=== PATIENT | female | born 1950 | race Caucasian/White ===

== ENCOUNTER 2017-04-22 21:45 | Emergency (ER) | payer BC, OTHER ==
[~2017-04-22] VITALS: Ht 167.6 cm; Wt 72.7 kg
[2017-04-22 21:47] VITALS: Ht 167.6 cm; Wt 72.7 kg
--- NOTE | 2017-04-22 22:13 | ERA ---
ER Documentation Chief Complaint Date/Time DATE: 04/22/17 TIME: 22:12 Chief Complaint RUQ AP IN AM. +NAUSEA HX GALLSTONES HPI The patient is a 66-year-old female, presenting to the ER because of right upper quadrant abdominal pain that began about 10 AM today, had similar symptoms previously due to gallbladder attack, the pain is worse with food, and last meal was 12 PM. She denies fever, chills, neck pain, chest pain, complaint of nausea but no vomiting, denies diarrhea, complains of constipation , denied dysuria. She does not smoke nor drink. She is awaiting for cholecystectomy Past medical history: Cholelithiasis, vertigo, hypertension, dyslipidemia Past surgical history: Hysterectomy, left inguinal herniorrhaphy ROS All systems reviewed and are negative except as per history of present illness. Medications Home Meds Active Scripts Tramadol Hcl* (Ultram*) 50 Mg Tablet, 50 MG PO Q6H Y for PAIN, #14 TAB Prov:JAYA RUBIO MD 04/22/17 Sulfamethoxazole/Trimethoprim* (Bactrim Ds* Tablet) 1 Each Tablet, 1 TAB PO BID , #14 TAB Prov:JAYA RUBIO MD 04/22/17 Reported Medications Calcium Citrate/Vitamin D (Citracal-Vitamin D 200 MG-250) 1 Each Tablet, 1 EACH PO BID, TAB 04/22/17 Multivits-Min/Iron/FA/Lutein (Centrum Silver Women Tablet) 1 Each Tablet, 1 EACH PO, TAB 04/22/17 Ibuprofen* (Ibuprofen*) 200 Mg Capsule, 400 MG PO Q6, CAP 04/22/17 Hydrochlorothiazide* (Hydrochlorothiazide*) 25 Mg Tab, 25 MG PO DAILY, #30 TAB 04/22/17 Lisinopril* (Lisinopril*) 40 Mg Tablet, 40 MG PO DAILY, #30 TAB 04/22/17 Simvastatin* (Zocor*) 20 Mg Tablet, 20 MG PO QHS, #30 TAB 04/22/17 Allergies Allergies: Coded Allergies: morphine (Verified Allergy, Unknown, RASH, 04/22/17) Physical Exam Vitals Vital Signs Date Time Temp Pulse Resp B/P Pulse Ox O2 Delivery O2 Flow Rate FiO2 04/22/17 23:18 62 11 142/73 97 Room Air 04/22/17 21:47 98.9 75 18 194/85 98 Physical Exam Const: No acute distress. Head: Atraumatic. Eyes: Normal Conjunctiva. ENT: Normal External Ears, Nose and Mouth. Neck: Full range of motion. No meningismus. Resp: Clear to auscultation bilaterally. Cardio: Regular rate and rhythm. Abd: Soft, non distended, normal bowel sounds, mild to moderate right upper quadrant tenderness, no right lower quadrant, rigidity, rebound, CVA tenderness Skin: No petechiae or rashes. Back: No midline or flank tenderness. Ext: No cyanosis, or edema. Neur: Awake and alert. No focal deficit Psych: Normal Mood and Affect. Result Diagram: 04/22/17221904/22/172219 Results 24 hrs Laboratory Tests Test 04/22/17 22:20 04/22/17 22:28 White Blood Count 7.710^3/ul Red Blood Count 4.5210^6/ul Hemoglobin 13.4g/dl Hematocrit 40.5% Mean Corpuscular Volume 89.6fl Mean Corpuscular Hemoglobin 29.6pg Mean Corpuscular Hemoglobin Concent 33.1g/dl Red Cell Distribution Width 12.1% Platelet Count 95080^3/UL Mean Platelet Volume 10.1fl Neutrophils % 57.9% Lymphocytes % 27.3% Monocytes % 11.0% Eosinophils % 2.9% Basophils % 0.5% Nucleated Red Blood Cells % 0.0/100WBC Neutrophils # 4.410^3/ul Lymphocytes # 2.110^3/ul Monocytes # 0.810^3/ul Eosinophils # 0.210^3/ul Basophils # 0.010^3/ul Nucleated Red Blood Cells # 0.010^3/ul Prothrombin Time 12.4Sec Prothrombin Time Ratio 1.0 INR International Normalized Ratio 0.92 Activated Partial Thromboplast Time 29.5Sec Sodium Level 139mmol/L Potassium Level 4.3mmol/L Chloride Level 104mmol/L Carbon Dioxide Level 27mmol/L Anion Gap 12 Blood Urea Nitrogen 15mg/dl Creatinine 0.67mg/dl Glucose Level 93mg/dl Calcium Level 9.8mg/dl Total Bilirubin 0.3mg/dl Direct Bilirubin 0.00mg/dl Indirect Bilirubin 0.3mg/dl Aspartate Amino Transf (AST/SGOT) 21IU/L Alanine Aminotransferase (ALT/SGPT) 33IU/L Alkaline Phosphatase 74IU/L Total Protein 8.1g/dl Albumin 4.8g/dl Globulin 3.30g/dl Albumin/Globulin Ratio 1.45 Lipase 211U/L Bedside Urine pH (LAB) 7.0 Bedside Urine Protein (LAB) Negative Bedside Urine Glucose (UA) Negative Bedside Urine Ketones (LAB) Negative Bedside Urine Blood Trace-intact Bedside Urine Nitrite (LAB) Negative Bedside Urine Leukocyte Esterase (L 1+ Current Medications Medications (Trade) Dose Ordered Sig/Alivia Route PRN Reason Start Time Stop Time Status Last Admin Dose Admin Morphine Sulfate (morphine) 4 mg ONCE STAT IV 04/22/17 22:19 04/22/17 22:21 DC Ondansetron HCl (Zofran Inj) 4 mg ONCE STAT IV 04/22/17 22:19 04/22/17 22:21 DC 04/22/17 22:43 Ketorolac Tromethamine (Toradol) 30 mg ONCE STAT IV 04/22/17 22:35 04/22/17 22:40 DC 04/22/17 22:43 Procedures/MDM MEDICAL MAKING DECISION: The patient is a 66-year-old female, presenting acute biliary colic, acute cystitis. She was treated with Toradol 30 mg IV for pain and Zofran 4 mg IV for nausea with good response, her blood pressure improved. On multiple reevaluation, she felt well, repeat abdominal exams were unremarkable The differential diagnoses considered include but are not limited to cholelithiasis, cholecystitis, cystitis, pancreatitis, hepatitis, gastritis, peptic ulcer disease, gastric ulcer, appendicitis, diverticulitis, cholangitis, choledocholithiasis, partial small bowel obstruction. Departure Diagnosis: Primary Impression: Biliary colic Additional Impression: UTI (urinary tract infection) Condition: Good Comments She was discharged with Bactrim DS and Ultram I discussed the findings with the patient. I advised the patient to follow-up with the primary physician in about 1-2 days for referral to general surgery for elective cholecystectomy, sooner if needed and return if any concern. JAYA RUBIO MD Apr 22, 2017 22:13
[2017-04-22 22:25] LABS: URINE BLOOD (Dip) POC Trace-intact (NEGATIVE)
[2017-04-22] MEDS: ONDANSETRON 4 MG INJ IV STA ×2 (22:27→22:43)
[2017-04-22] MEDS: morphine 4 MG/ML VIAL IV STA ×2 (22:28→22:47)
[2017-04-22] MEDS ORDERED: KETOROLAC 30 MG INJ IV STA (22:35)
[2017-04-22 22:38] LABS: ADD SCAN DIFF NO
[2017-04-22 22:39] LABS: BASOPHILS % 0.5 % (0.0-2.0); EOSINOPHILS # 0.2 10^3/ul (0.0-0.5); EOSINOPHILS % 2.9 % (0.0-7.0); HEMATOCRIT 40.5 % (37.0-47.0); HEMOGLOBIN 13.4 g/dl (12.0-16.0); LYMPHOCYTES # 2.1 10^3/ul (0.8-2.9); LYMPHOCYTES % 27.3 % (15.0-51.0); MEAN CORPUSCULAR HEMOGLOBIN 29.6 pg (29.0-33.0); MEAN CORPUSCULAR HGB CONC 33.1 g/dl (32.0-37.0); MEAN CORPUSCULAR VOLUME 89.6 fl (82.0-101.0); MEAN PLATELET VOLUME 10.1 fl (7.4-10.4); MONOCYTE # 0.8 10^3/ul (0.3-0.9); NEUTROPHIL # 4.4 10^3/ul (1.6-7.5); NEUTROPHILS % 57.9 % (39.0-77.0); PLATELET COUNT 279 10^3/UL (140-415); RED BLOOD COUNT 4.52 10^6/ul (4.20-5.40); RED CELL DISTRIBUTION WIDTH 12.1 % (11.5-14.5); WHITE BLOOD COUNT 7.7 10^3/ul (4.8-10.8)
[2017-04-22 22:54] LABS: INR 0.92; PROTIME 12.4 Sec (12.2-14.2)
[2017-04-22 22:55] LABS: PARTIAL THROMBOPLASTIN TIME 29.5 Sec (25.0-35.0)
[2017-04-22 22:57] LABS: ALBUMIN 4.8 g/dl (3.3-4.9); ALBUMIN/GLOBULIN RATIO 1.45; BILIRUBIN,INDIRECT 0.3 mg/dl (0-1.1); BILIRUBIN,TOTAL 0.3 mg/dl (0.2-1.3); CALCIUM 9.8 mg/dl (8.4-10.2); CREATININE 0.67 mg/dl (0.44-1.00); POTASSIUM 4.3 mmol/L (3.5-5.1); TOTAL PROTEIN 8.1 g/dl (6.1-8.1)
[2017-04-22] MEDS ORDERED: HYD25 PO (23:08)
[2017-04-22] MEDS ORDERED: MULT-853 PO (23:08)
[2017-04-22] MEDS ORDERED: IBUP200C PO (23:08)
[2017-04-22] MEDS ORDERED: CALC-143 PO (23:08)
[2017-04-22] MEDS ORDERED: SIMV20TA PO (23:08)
[2017-04-22] MEDS ORDERED: LISI40TA9 PO (23:08)
[2017-04-22] MEDS ORDERED: TRAM-40 PO (23:27)
[2017-04-22] MEDS ORDERED: SULF1TAB31 PO (23:27)
[2017-04-23] VITALS: BP 150/74; PULSE 68; RESP 16; TEMP 98.1
== END 2017-04-23 00:05 | disposition home or self-care (01) ==
LOC: EDUNIT# 21:45 → E/R 21:45
DX: K80.50 Calculus of bile duct without cholangitis or cholecystitis without obstruction (principal); N39.0 Urinary tract infection, site not specified; I10 Essential (primary) hypertension; R11.0 Nausea
CPT/HCPCS: 36415; 80053; 81003; 83690; 85025; 85610; 85730; 96374; 96375; 99284; J1885; J2405; J2270